=== PATIENT | female | born 1955 | race Caucasian/White ===

== ENCOUNTER 2019-01-10 01:45 | Emergency (ER) | payer BC ==
[~2019-01-10] VITALS: Ht 162.6 cm; Wt 79.1 kg
[2019-01-10] MEDS ORDERED: RANE1000 (01:55)
[2019-01-10] MEDS ORDERED: NOVOINJ2 (01:55)
[2019-01-10] MEDS ORDERED: LEVO500T3 (01:55)
[2019-01-10] MEDS ORDERED: METF500T4 (01:55)
[2019-01-10] MEDS ORDERED: BENZ-18 (01:55)
[2019-01-10] MEDS ORDERED: METO1TAB87 (01:55)
[2019-01-10] MEDS ORDERED: RANO1000 (01:55)
[2019-01-10] MEDS ORDERED: CLOP75TA2 (01:55)
[2019-01-10] MEDS ORDERED: PRED10TA2 (01:55)
[2019-01-10 02:23] LABS: BASO % 0.3 % (0.0-1.0); EOS # 0.1 10^3/uL (0.0-0.50); EOS % 0.6 % (0.0-3.0); HEMATOCRIT 38.6 % (36.0-47.0); HEMOGLOBIN 12.5 g/dl (12.0-15.5); LYMPH # 1.3 10^3/uL (1.5-4.5); LYMPH % 10.7 % (24.0-44.0); MEAN CORPUSCULAR HEMOGLOBIN 30.9 pg (27.0-33.0); MEAN CORPUSCULAR HGB CONC 32.4 g/dl (32.0-36.5); MEAN CORPUSCULAR VOLUME 95.3 fl (80.0-96.0); MONO # 0.5 10^3/uL (0.0-0.8); MONO % 4.3 % (0.0-5.0); NEUTROPHILS # 9.9 10^3/uL (1.8-7.7); NEUTROPHILS % 83.6 % (36.0-66.0); PLATELET COUNT, AUTOMATED 315 10^3/uL (150-450); RED BLOOD COUNT 4.05 10^6/uL (4.00-5.40); WHITE BLOOD COUNT 11.8 10^3/uL (4.0-10.0)
[2019-01-10 02:43] LABS: BLOOD UREA NITROGEN 16 MG/DL (7-18); CALCIUM LEVEL 8.6 MG/DL (8.8-10.2); CARBON DIOXIDE LEVEL 24 MEQ/L (21-32); CHLORIDE LEVEL 111 MEQ/L (98-107); CREATININE FOR GFR 0.91 MG/DL (0.55-1.30); GLOMERULAR FILTRATION RATE > 60.0 (>45); GLUCOSE, FASTING 138 MG/DL (70-100); POTASSIUM SERUM 4.2 MEQ/L (3.5-5.1); SODIUM LEVEL 144 MEQ/L (136-145)
[2019-01-10 03:13] LABS: CK-MB VALUE MASS 1.5 NG/ML (<3.6); CPK CREATINE PHOSPHOKINASE 97 U/L (26-192); MB/CK RELATIVE INDEX 1.55 (< OR =4); NT-PRO BNP 9389 PG/ML (<125); TROPONIN I 0.06 NG/ML (< 0.10)
[2019-01-10] MEDS ORDERED: IPRATROPIUM 0.5MG/ALBUTEROL 2.5MG INH SOL UD 3ML (DUONEB)(J7620) NEB ONE (03:15)
[2019-01-10] MEDS ORDERED: FUROSEMIDE 40 MG/4 ML VIAL (J1940) IV ONE (04:15)
[2019-01-10] MEDS ORDERED: ONDANSETRON 4MG/2ML VIAL (J2405) IV ONE (04:30)
[2019-01-10] MEDS ORDERED: LASI20TA3 PO (06:29)
[2019-01-10 07:18] VITALS: O2SAT 97
[2019-01-10 07:30] VITALS: BP 132/84
--- NOTE | 2019-01-10 08:36 | REP ---
CHEST, TWO VIEWS: Two views of the chest are performed and compared to prior study of 06/26/2004. Vasculature appears prominent and the heart is slightly enlarged. Increased interstitial markings are noted. The findings suggest CHF and interstitial edema. There appear to be small effusions as well. Mediastinal silhouette is otherwise unremarkable. There are mild degenerative changes of the spine. IMPRESSION: Findings suggesting CHF and interstitial edema. Electronically Signed by Ellis Hoover MD 01/11/2019 08:06 P
--- NOTE | 2019-01-10 19:51 | ECGEPIP ---
[facility] - ED Test Date: 2019-01-10 Pat Name: KASEY COLE Department: Room: - Gender: Female Se[employer] Grinder: GILLIAN : 1955 Requested By: ANGIE Thomson Order Number: [id number] Reading MD: Inna Wren Measurements Intervals [place] Rate: 98 P: 22 WV: 129 QRS: 27 QRSD: 95 T: 31 QT: 308 QTc: 394 Interpretive Statements SINUS RHYTHM LOW QRS VOLTAGE IN EXTREMITY LEADS MODERATE ST DEPRESSION BASELINE ARTIFACT MAY AFFECT READING BASELINE WANDERING MAY AFFECT READING DELAYED R WAVE PROGRESSION NONSPECIFIC ST T WAVE CHANGES NO PRIOR ECG FOR COMPARISON Electronically Signed on 01-10-2019 19:51:11 EDT by Inna Wren
== END 2019-01-10 07:41 | disposition home or self-care (01) ==
LOC: M ED 01:45
DX: I50.9 Heart failure, unspecified (principal); I25.2 Old myocardial infarction; E11.9 Type 2 diabetes mellitus without complications; I10 Essential (primary) hypertension; Z95.5 Presence of coronary angioplasty implant and graft
CPT/HCPCS: 36415; 36600; 71046; 80048; 82550; 82553; 82803; 83880; 84484; 85025; 93005; 93041; 94640; 96374; 96375; 99285; J1940; J2405

== ENCOUNTER → 2020-01-07 | Outpatient (CLI) | payer BC ==
[~2020-01-07] MED LIST: BENZ-18; CLOP75TA2; LASI20TA3 PO; LEVO500T3; METF-838; METO1TAB87; NOVOINJ2; PRED10TA2; RANE1000; RANO10002
== END ==
LOC: M LABSMTC 09:30
PROVIDERS: ATTEND Internal Medicine Cardiovascular Disease
DX: Z11.59 Encounter for screening for other viral diseases (principal); Z20.828 Contact with and (suspected) exposure to other viral communicable diseases
CPT/HCPCS: C9803; U0003

== ENCOUNTER 2024-05-25 07:44 | Day surgery (SDC) | payer MEDICARE, BC ==
[~2024-05-25] VITALS: Ht 162.6 cm; Wt 80.9 kg
[~2024-05-25 07:44] MED LIST changes: +AMIO0.1T PO; +BAYE81TA7 PO; +CARV6.25 PO; -CLOP75TA2; +CLOP75TA2 PO; +EZET10TA21 PO; +FURO40TA2 PO; +INSU100I18 SC; +JARD1TAB PO; +LEVO1TAB39; -LEVO500T3; -METF-838; +METF-838 PO; -NOVOINJ2; +NOVOINJ2 SC; +ROSU5TAB49 PO; +SPIR-10 PO; +THERTAB52 PO; +VALS40TA9 PO; +VITA200035 PO
[2024-05-25] MEDS ORDERED: propofoL 200 MG/20 ML VIAL As Ordered ONE (08:24)
[2024-05-25 09:03] VITALS: TEMP 97
[2024-05-25 09:21] VITALS: BP 150/65; O2SAT 97
== END 2024-05-25 09:27 | disposition home or self-care (01) ==
LOC: M OPP 07:44
PROVIDERS: ATTEND Surgery
DX: K64.1 Second degree hemorrhoids (principal); R19.5 Other fecal abnormalities; I25.2 Old myocardial infarction; I10 Essential (primary) hypertension; E78.5 Hyperlipidemia, unspecified; E10.9 Type 1 diabetes mellitus without complications; M19.90 Unspecified osteoarthritis, unspecified site; Z88.8 Allergy status to other drugs, medicaments and biological substances; Z79.4 Long term (current) use of insulin; Z79.82 Long term (current) use of aspirin; Z79.84 Long term (current) use of oral hypoglycemic drugs; Z79.899 Other long term (current) drug therapy

== ENCOUNTER → 2024-09-08 | Outpatient (CLI) | payer MEDICARE, BC | LOC: M RAD 13:03 | PROVIDERS: ATTEND Podiatrist Foot & Ankle Surgery | DX: I73.89 Other specified peripheral vascular diseases (principal) ==